=== PATIENT | female | born 1975 | race Caucasian/White ===

== ENCOUNTER 2018-08-01 19:27 | Emergency (ER) | payer OTHER ==
[~2018-08-01] VITALS: Ht 160 cm; Wt 77.1 kg
[2018-08-01 20:12] VITALS: BP 168/74; Ht 160 cm; Wt 77.1 kg
== END 2018-08-01 21:01 | disposition home or self-care (01) ==
LOC: ED 19:27
DX: J40 Bronchitis, not specified as acute or chronic (principal); M94.0 Chondrocostal junction syndrome [Tietze]; E11.65 Type 2 diabetes mellitus with hyperglycemia